=== PATIENT | male | born 1960 | race African-American/Black ===

== ENCOUNTER 2017-09-27 02:04 | Emergency (ER) | payer MEDICAID ==
[2017-09-27 02:26] LABS: BASOPHILS 0.2 % (0-2); EOSINOPHILS 2.9 % (0-7); HEMATOCRIT 41.8 % (42.0-54.0); HEMOGLOBIN 13.8 g/dL (13.5-17.5); IMMATURE GRANULOCYTES 0.2 % (0-5); LYMPHOCYTES 36.2 % (15-50); MCH 29.3 pg (26.0-34.0); MCV 88.7 fL (80.0-100.0); MEAN PLATELET VOLUME 9.7 fL (7.4-10.4); MONOCYTES 9.1 % (2-11); NEUTROPHILS 51.4 % (40-80); PLATELET COUNT 283 10x3/uL (130-400); RBC 4.71 10x6/uL (4.20-6.10); RDW 14.1 % (11.5-14.5); WBC 6.2 10x3/uL (4.8-10.8)
[2017-09-27 02:42] LABS: ALBUMIN 3.6 g/dL (3.4-5.0); ALKALINE PHOSPHATASE 84 U/L (46-116); ALT (SGPT) 26 U/L (10-68); CALC OSMOLALITY 275 mosm/kg (275-300); CALCIUM 9.1 mg/dL (8.5-10.1); CARBON DIOXIDE 27.3 mmol/L (21.0-32.0); CHLORIDE - SERUM 102 mmol/L (98-107); CREATININE - SERUM 1.4 mg/dL (0.6-1.3); GLUCOSE 106 mg/dL (74-106); POTASSIUM - SERUM 3.6 mmol/L (3.5-5.1); PROTEIN - SERUM 8.3 g/dL (6.4-8.2); SODIUM 137 mmol/L (136-145); UREA NITROGEN 18 mg/dL (7-18); eGFR NON AFRICAN AMERICAN 55 mL/min (90-120)
[2017-09-27 02:45] LABS: LIPASE 103 U/L (73-393); TROPONIN-I < 0.017 ng/mL (0.000-0.060)
[2017-09-27 02:48] LABS: APPEARANCE CLEAR (CLEAR); BILIRUBIN NEGATIVE (NEGATIVE); COLOR YELLOW (YELLOW); GLUCOSE NEGATIVE (NEGATIVE); KETONE NEGATIVE (NEGATIVE); NITRITE NEGATIVE (NEGATIVE); PROTEIN NEGATIVE (NEGATIVE); UROBILINOGEN NORMAL (NORMAL)
== END 2017-09-27 05:36 | disposition left against medical advice (07) ==
LOC: D.ER 02:04
PROVIDERS: Family Medicine
DX: R10.84 Generalized abdominal pain (principal); I10 Essential (primary) hypertension; N40.0 Benign prostatic hyperplasia without lower urinary tract symptoms

== ENCOUNTER 2018-09-28 08:55 | Observation (INO) | payer MEDICAID ==
[2018-09-28] VITALS (7 sets, daily range): BP systolic 133–167; BP diastolic 84–110; Ht 165.1 cm; Wt 99.1 kg
[~2018-09-28] VITALS: Ht 165.1 cm; Wt 99.1 kg
[2018-09-28] MEDS ORDERED: FLOMAX0.4 MG PO (09:09)
[2018-09-28] MEDS ORDERED: LISINOPRIL5 MG PO (09:09)
[2018-09-28 09:52] LABS: BASOPHILS 0.5 % (0-2); EOSINOPHILS 2.9 % (0-7); HEMATOCRIT 38.6 % (42.0-54.0); HEMOGLOBIN 12.9 g/dL (13.5-17.5); IMMATURE GRANULOCYTES 0.2 % (0-5); LYMPHOCYTES 30.3 % (15-50); MCH 29.5 pg (26.0-34.0); MCHC 33.4 g/dL (31.0-37.0); MCV 88.3 fL (80.0-100.0); MEAN PLATELET VOLUME 9.9 fL (7.4-10.4); MONOCYTES 7.2 % (2-11); NEUTROPHILS 58.9 % (40-80); RBC 4.37 10x6/uL (4.20-6.10); RDW 13.5 % (11.5-14.5); WBC 8.1 10x3/uL (4.8-10.8)
[2018-09-28 09:56] LABS: PLATELET COUNT 365 10x3/uL (130-400)
[2018-09-28 10:10] LABS: ALBUMIN 2.9 g/dL (3.4-5.0); ANION GAP 10.2 mmol/L (8-16); BILIRUBIN - TOTAL 0.4 mg/dL (0.2-1.3); CALCIUM 9.1 mg/dL (8.5-10.1); CARBON DIOXIDE 30.5 mmol/L (21.0-32.0); CREATININE - SERUM 1.3 mg/dL (0.6-1.3); POTASSIUM - SERUM 3.7 mmol/L (3.5-5.1); PROTEIN - SERUM 8.1 g/dL (6.4-8.2)
--- NOTE | 2018-09-28 11:58 | NUR ---
RECEIVED PT FROM ER NURSE. HOOKED UP TO MONITOR. VSS. WILL CHECK FOR ORDERS AND CONTINUE TO MONITOR
--- NOTE | 2018-09-28 13:00 | NUR ---
PT RESTING IN BED WITH VSS. WILL CONTINUE TO MONITOR
--- NOTE | 2018-09-28 15:00 | NUR ---
PT RESTING IN BED. CALL CARDONA IN REACH. NO COMPLAINTS. SWELLING APPEARS TO BE GOING DOWN IN FACE. WILL CONTINUE TO MONITOR
--- NOTE | 2018-09-28 17:08 | NUR ---
CALLED REPORT TO MED 3 NURSE. FAMILY MEMBER WITH PATIENT. WILL TAKE DOWN VIA WHEEL CHAIR
--- NOTE | 2018-09-28 17:13 | NUR ---
PT RECEIVED FROM ICU TO ROOM 1209 VIA W/C. ALERT AND ORIENTED. NO ACUTE DISTRESS NOTED. SALINE LOC TO RIGHT AC. ORIENTED TO ROOM. CL WITHIN REACH. ENCOURAGED TO CALL WITH NEEDS.
--- NOTE | 2018-09-28 19:35 | NUR ---
PATIENT RESTING IN BED WITH NO S/S OF DISTRESS. BROUGHT PATIENT A DRINK PER HIS REQUEST. PATIENT DENIES OTHER NEEDS AT THIS TIME. BED IN LOWEST POSITION AND CALL LIGHT WITHIN REACH. ENCOURAGED THE PATIENT TO CALL IF HE HAS NEEDS. WILL CONTINUE TO MONITOR.
[2018-09-29 04:30] VITALS: BP 145/92
--- NOTE | 2018-09-29 07:15 | NUR ---
INITIAL ROUNDING ON THE PATIENT, HE IS AWAKE AND ORIENTATED. DENIES PAIN AT THIS TIME. CALL LIGHT IN REACH.
[2018-09-29 07:25] LABS: BASOPHILS 0.1 % (0-2); EOSINOPHILS 0 % (0-7); HEMATOCRIT 38.9 % (42.0-54.0); HEMOGLOBIN 13.1 g/dL (13.5-17.5); IMMATURE GRANULOCYTES 0.3 % (0-5); LYMPHOCYTES 9.4 % (15-50); MCH 29.2 pg (26.0-34.0); MCHC 33.7 g/dL (31.0-37.0); MCV 86.8 fL (80.0-100.0); MEAN PLATELET VOLUME 10.2 fL (7.4-10.4); MONOCYTES 1.5 % (2-11); NEUTROPHILS 88.7 % (40-80); PLATELET COUNT 431 10x3/uL (130-400); RBC 4.48 10x6/uL (4.20-6.10); RDW 13.4 % (11.5-14.5)
[2018-09-29 07:30] LABS: WBC 11.2 10x3/uL (4.8-10.8)
[2018-09-29 08:00] LABS: ANION GAP 13.4 mmol/L (8-16); CALCIUM 9.4 mg/dL (8.5-10.1); CARBON DIOXIDE 27.9 mmol/L (21.0-32.0); CREATININE - SERUM 1.4 mg/dL (0.6-1.3)
[2018-09-29 08:02] LABS: POTASSIUM - SERUM 4.3 mmol/L (3.5-5.1)
[2018-09-29 08:25] VITALS: BP 152/92
[2018-09-29] MEDS ORDERED: STERAPRED 5MG 65 M1 PO (09:06)
[2018-09-29] MEDS ORDERED: NORVASC5 MG PO (09:06)
--- NOTE | 2018-09-29 10:00 | NUR ---
REMOVED THE IV FROM THE RIGHT AC, CATH TIP INTACT. PATIENT REPORTS HE WILL DRIVE HIS VAN HOME WHEN DISCHARGED.
== END 2018-09-29 12:25 | disposition home or self-care (01) ==
LOC: D.ER 08:55 → D.M3 10:44 → D.ICU 10:44 → OBSVTIME 11:04 → D.ICU 11:36 → D.M3 18:07
PROVIDERS: Family Medicine; ADMIT Internal Medicine Nephrology; ATTEND Internal Medicine Nephrology
DX: T78.3XXA Angioneurotic edema, initial encounter (principal); I10 Essential (primary) hypertension; D64.9 Anemia, unspecified; N17.9 Acute kidney failure, unspecified